=== PATIENT | female | born 1955 | race African-American/Black ===

== ENCOUNTER 2019-02-22 22:22 | Emergency (ER) | payer OTHER ==
[~2019-02-22] VITALS: Ht 157.5 cm; Wt 57.7 kg
[2019-02-22] MEDS ORDERED: FLUT16H NASAL (23:01)
[2019-02-22] MEDS ORDERED: ZOLP10TA7 PO (23:01)
[2019-02-22] MEDS ORDERED: ATOR20TA86 PO (23:01)
[2019-02-23 01:29] VITALS: BP 157/89
== END 2019-02-23 01:49 | disposition home or self-care (01) ==
LOC: EMS 22:23
DX: S61.212A Laceration without foreign body of right middle finger without damage to nail, initial encounter (principal); E78.00 Pure hypercholesterolemia, unspecified; Z88.1 Allergy status to other antibiotic agents; Z79.899 Other long term (current) drug therapy; F17.210 Nicotine dependence, cigarettes, uncomplicated; W26.0XXA Contact with knife, initial encounter; Y93.89 Activity, other specified; Y92.89 Other specified places as the place of occurrence of the external cause; Y99.8 Other external cause status
CPT/HCPCS: 12001